=== PATIENT | male | born 1960 | race American Indian/Alaskan Native ===

== ENCOUNTER 2016-12-25 07:24 | Day surgery (SDC) | payer OTHER ==
[2016-12-25] MEDS ORDERED: Propofol 10 mg/ml Inj (20 ML) ONE (07:43)
[2016-12-25] MEDS ORDERED: Midazolam 2 MG/2 ML VIAL ONE (07:43)
[2016-12-25] MEDS ORDERED: (Novolin R) Insulin Human Regular 100 units/ml vial ONE (08:46)
[2016-12-25] MEDS: (Novolin R) Insulin Human Regular 100 units/ml vial ONE ×2 (09:05→09:21)
[2016-12-25 09:24] VITALS: BMI 33.2
--- NOTE | 2016-12-25 09:24 | CP.SDSHP ---
Same Day Surgery H & P - History Proposed Procedure: push enteroscopy Pre-Op Diagnosis: iron deficiency. 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 Evaluated Today:Candidate for Anesthesia & Procedure: Yes - Date & Time Date: 12/25/16 Time: 09:24 Short Stay Discharge - Short Stay Discharge Admitting Diagnosis/Reason for Visit: ARTERIOVENOUS MALFORMATION OF DIGESTIVE SYSTEM VES Disposition: HOME/ ROUTINE
[2016-12-25] MEDS ORDERED: Lactated Ringer's 1,000 ML IV ONE ×2 (09:29)
[2016-12-25] MEDS ORDERED: Glucagon Recombinant 1 mg Inj ONE (09:41)
[2016-12-25 10:41] VITALS: TEMP 98
[2016-12-25 10:44] VITALS: BP 129/84; PULSE 71; RESP 15; O2SAT 97
== END 2016-12-25 11:19 | disposition home or self-care (01) ==
LOC: C.ENDO 07:24
PROVIDERS: ATTEND Internal Medicine Gastroenterology
DX: D50.8 Other iron deficiency anemias (principal); Q27.33 Arteriovenous malformation of digestive system vessel; I99.8 Other disorder of circulatory system
CPT/HCPCS: 43255; 82948; J1610; J2250; J2704; J7120